=== PATIENT | female | born 1980 | race Caucasian/White ===

== ENCOUNTER 2017-02-19 23:41 | Emergency (ER) | payer SELFPAY ==
[~2017-02-19] VITALS: Ht 165.1 cm; Wt 81.0 kg
[~2017-02-19 23:41] MED LIST: Z.0.NO CURRENT MEDS
[2017-02-19 23:42] VITALS: BP 126/65; PULSE 86; RESP 15; TEMP 98.8; O2SAT 98
[2017-02-19] MEDS ORDERED: SODIUM CHLOR 0.9% 1000 ML INJ 1,000 ML IV ONE (23:59)
[2017-02-20] MEDS ORDERED: ONDANSETRON HCL 4 MG/2 ML VIAL IVP ONE
[2017-02-20] MEDS ORDERED: MORPHINE SULFATE 4 MG/ML INJ IV ONE
--- NOTE | 2017-02-20 00:15 | PD ---
HPI Chief Complaint: GI Complaint Time Seen by Provider: 23:59 Travel History International Travel<30 days: No Contact w/Intl Traveler<30days: No Traveled to known affect area: No History of Present Illness HPI C/O 1 WEEK H/O SUPRAPUBIC DISCOMFORT, WITH FREQUENCY/URGENCY/DYSURIA...OVER LAST 2 DAYS PAIN HAS NOW LOCATED TO LEFT FLANK AREA, SHARP, NONRAD, 02/13...NO FEVER/N/V/D/XAVIER/CP PFSH Past Medical History Anemia: Yes Heart Rhythm Problems: Yes (HX: SVT) Cardiovascular Problems: Yes (sinus ventricular tachycardia but not on medication for it) Diminished Hearing: No Gastrointestinal Disorders: No Genitourinary: Yes (RECURRANT UTI/PYELONEPHRITIS) Neurologic: No Respiratory: No Tetanus Vaccination: > 5 Years Influenza Vaccination: No ?: Not LMP: 02-12-17 : 5 Para: 4 Miscarriage: 1 Tubal Ligation: Yes Past Surgical History Section: Yes (4X) Genitourinary Surgery: Yes (URETHRAL WIDENING) Gynecologic Surgery: Yes () Other Surgery: Yes () Family History Family Myocardial Infarction: Yes (FATHER) Social History Alcohol Use: Yes (OCCASSIONALLY) Tobacco Use: Yes (< 1/2 PPD) Substance Use: No Allergies-Medications (Allergen,Severity, Reaction): Coded Allergies: No Known Allergies (Verified , 02/20/17) Reported Meds & Prescriptions Reported Meds & Active Scripts Active No Active Prescriptions or Reported Medications Review of Systems Except as stated in HPI: all other systems reviewed are Neg Genitourinary: Positive: Urgency, Frequency, Dysuria, Flank Pain Physical Exam Narrative GENERAL: SKIN: Warm and dry. HEAD: Atraumatic. Normocephalic. EYES: Pupils equal and round. No scleral icterus. No injection or drainage. ENT: No nasal bleeding or discharge. Mucous membranes pink and moist. NECK: Trachea midline. No JVD. CARDIOVASCULAR: Regular rate and rhythm. RESPIRATORY: No accessory muscle use. Clear to auscultation. Breath sounds equal bilaterally. GASTROINTESTINAL: Abdomen soft, non-tender, nondistended. MUSCULOSKELETAL: Extremities without clubbing, cyanosis, or edema. No obvious deformities. MILD LEFT CVAT NEUROLOGICAL: Awake and alert. No obvious cranial nerve deficits. Motor grossly within normal limits. Five out of 5 muscle strength in the arms and legs. Normal speech. PSYCHIATRIC: Appropriate mood and affect; insight and judgment normal. Data Data Last Documented VS Vital Signs Date Time Temp Pulse Resp B/P Pulse Ox O2 Delivery O2 Flow Rate FiO2 02/19/17 23:42 98.8 86 15 126/65 98 Room Air Orders Complete Blood Count With Diff (02/19/17 23:59) Comprehensive Metabolic Panel (02/19/17 23:59) Urinalysis - C+S If Indicated (02/19/17 23:59) Ed Urine Pregnancytest Poc (02/19/17 23:59) Ct Abd/Pel W/O Iv Contrast (02/19/17 23:59) Ecg Monitoring (02/19/17 23:59) Iv Access Insert/Monitor (02/19/17 23:59) Morphine Inj (Morphine Inj) (02/20/17 00:00) Ondansetron Inj (Zofran Inj) (02/20/17 00:00) Sodium Chlor 0.9% 1000 Ml Inj (Ns 1000 M (02/19/17 23:59) Urine Culture (02/20/17 00:05) Ceftriaxone Inj (Rocephin Inj) (02/20/17 01:30) Labs Laboratory Tests Test 02/20/17 00:05 White Blood Count 9.3 TH/MM3 Red Blood Count 4.17 MIL/MM3 Hemoglobin 10.4 GM/DL Hematocrit 32.0 % Mean Corpuscular Volume 76.8 FL Mean Corpuscular Hemoglobin 24.9 PG Mean Corpuscular Hemoglobin 32.4 % Concent Red Cell Distribution Width 19.7 % Platelet Count 495 TH/MM3 Mean Platelet Volume 6.9 FL Neutrophils (%) (Auto) 57.4 % Lymphocytes (%) (Auto) 31.6 % Monocytes (%) (Auto) 6.4 % Eosinophils (%) (Auto) 3.3 % Basophils (%) (Auto) 1.3 % Neutrophils # (Auto) 5.4 TH/MM3 Lymphocytes # (Auto) 2.9 TH/MM3 Monocytes # (Auto) 0.6 TH/MM3 Eosinophils # (Auto) 0.3 TH/MM3 Basophils # (Auto) 0.1 TH/MM3 CBC Comment DIFF FINAL Differential Comment Urine Color YELLOW Urine Turbidity HAZY Urine pH 5.5 Urine Specific [place] 1.023 Urine Protein NEG mg/dL Urine Glucose (UA) NEG mg/dL Urine Ketones NEG mg/dL Urine Occult Blood MOD Urine Nitrite POS Urine Bilirubin NEG Urine Urobilinogen LESS THAN 2.0 MG/DL Urine Leukocyte Esterase SMALL Urine RBC LESS THAN 1 /hpf Urine WBC 10 /hpf Urine Squamous Epithelial 1 /hpf Cells Urine Transitional Epithelial <1 /hpf Cells Urine Bacteria MANY /hpf Microscopic Urinalysis Comment CULTURE INDICATED Sodium Level 141 MEQ/L Potassium Level 3.3 MEQ/L Chloride Level 107 MEQ/L Carbon Dioxide Level 27.3 MEQ/L Anion Gap 7 MEQ/L Blood Urea Nitrogen 15 MG/DL Creatinine 1.07 MG/DL Estimat Glomerular Filtration 57 ML/MIN Rate Random Glucose 109 MG/DL Calcium Level 8.4 MG/DL Total Bilirubin 0.1 MG/DL Aspartate Amino Transf 15 U/L (AST/SGOT) Alanine Aminotransferase 25 U/L (ALT/SGPT) Alkaline Phosphatase 92 U/L Total Protein 7.4 GM/DL Albumin 3.7 GM/DL [facility] Medical Decision Making Medical Screen Exam Complete: Yes Emergency Medical Condition: Yes Medical Record Reviewed: Yes Differential Diagnosis UTI V PYELO V PERINEPHRIC ABSCESS V URETEROLITHIASIS Narrative Course UA C/W UTI, NO PYELO, NO KIDNEY ABSCESS AND NO KIDNEY STONES, PATIENT HAS NL RENAL FUNCTIONS AND NO LEUKOCYTOSIS. WILL GIVE IV ABX AND D/C ON PO ABX Diagnosis Primary Impression: ACUTE ASCENDING CYSTITIS Scripts Ondansetron Odt (Zofran Odt)4 Mg Tab4 Mg SL Q6HR PRN (Nausea/Vomiting) #20 TAB Prov:Xavi Denny MD 02/20/17 Hydrocodone-Acetaminophen (Lortab)7.5-325 Mg Tab1 Tab PO Q6H PRN (PAIN) #20 TAB Prov:Xavi Denny MD 02/20/17 Ciprofloxacin 500 Mg [id number] Mg PO BID #20 TAB Prov:Xavi Denny MD 02/20/17 Disposition: 01 DISCHARGE HOME Condition: Stable Xavi Denny MD Feb 20, 2017 00:15
[2017-02-20 00:30] LABS: AUTOMATED NEUTROPHIL # 5.4 TH/MM3 (1.8-7.7); BASOPHIL # 0.1 TH/MM3 (0-0.2); BASOPHIL % 1.3 % (0.0-2.0); EOSINOPHIL # 0.3 TH/MM3 (0-0.4); EOSINOPHIL % 3.3 % (0.0-4.0); HEMO FLAGS DIFF FINAL; LYMPH % 31.6 % (9.0-44.0); LYMPHOCYTE # 2.9 TH/MM3 (1.0-4.8); MEAN CELL VOLUME 76.8 FL (80.0-100.0); MEAN CORPUSCULAR HEMOGLOBIN 24.9 PG (27.0-34.0); MEAN CORPUSCULAR HGB CONC 32.4 % (32.0-36.0); MONO % 6.4 % (0.0-8.0); NEUT % 57.4 % (16.0-70.0); PLATELET COUNT 495 TH/MM3 (150-450); RED BLOOD COUNT 4.17 MIL/MM3 (4.00-5.30); RED CELL DISTRIBUTION WIDTH 19.7 % (11.6-17.2); WHITE BLOOD COUNT 9.3 TH/MM3 (4.0-11.0)
--- NOTE | 2017-02-20 00:38 | RADRPT ---
EXAM DATE/TIME: 02/20/2017 00:16 [place] COMPARISON: No previous studies available for comparison. INDICATIONS : Left flank pain. ORAL CONTRAST: No oral contrast ingested. RADIATION DOSE: 8.53 CTDIvol (mGy) MEDICAL HISTORY : Pyelonephritis. SURGICAL HISTORY : section. Tubal ligation. ENCOUNTER: Initial ACUITY: 1 week PAIN SCALE: 5/10 LOCATION: Left flank TECHNIQUE: Renal colic protocol. Volumetric scanning of the abdomen and pelvis was performed. Using automated exposure control and adjustment of the mA and/or kV according to patient size, radiation dose was kep t as low as reasonably achievable to obtain optimal diagnostic quality images. DICOM format image da ta is available electronically for review and comparison. FINDINGS: Right side: Atrophic kidney with long axis measuring 7.3 cm. There are scattered calcifications in the cortex of the atrophic kidney. No calcifications seen in the collecting system and no evidence of hydronephro sis. The right ureter is normal in dimension without calcification. Left side: Normal size and normal cortical thickness. No calcified stones or hydronephrosis. Left ureter is no rmal in diameter. Bladder: Nondistended. No calcifications within the lumen. Other: Anteverted uterus. No dilated loops of small or large bowel. No calcifications within the contracte d gallbladder. Osseous structures are grossly intact. CONCLUSION: 1. No calcified stones or hydronephrosis left kidney. 2. Atrophic right kidney with standard cortical calcifications characteristic of chronic pyelonephrit is. Emigdio Dinh MD on February 20, 2017 at 0:33 Board Certified Radiologist. This report was verified electronically.
[2017-02-20 00:51] LABS: ANION GAP 7 MEQ/L (5-15); AST (GOT) 15 U/L (15-37); BICARBONATE 27.3 MEQ/L (21.0-32.0); BLOOD UREA NITROGEN 15 MG/DL (7-18); CHLORIDE 107 MEQ/L (98-107); GLOMERULAR FILTRATION RATE 57 ML/MIN (>89); POTASSIUM 3.3 MEQ/L (3.5-5.1); SODIUM (NA) 141 MEQ/L (136-145)
[2017-02-20 00:52] LABS: ALT (GPT) 25 U/L (10-53)
[2017-02-20 00:54] LABS: ALKALINE PHOSPHATASE 92 U/L (45-117); TOTAL BILIRUBIN ADULT 0.1 MG/DL (0.2-1.0)
[2017-02-20 01:10] LABS: BACTERIA, URINE MANY /hpf; BLOOD, URINE MOD (NEG); GLUCOSE,URINE NEG (NEG); KETONE, URINE NEG (NEG); PH, URINE 5.5 (5.0-8.5); SQUAMOUS EPITHELIAL CELL URINE 1 /hpf (0-5); TRANSITIONAL EPI CELLS, URINE <1 /hpf; URINE COLOR YELLOW (YELLW/STRAW)
[2017-02-20 01:11] LABS: NITRITE,URINE POS (NEG)
[2017-02-20 01:12] LABS: COMMENT (UR) CULTURE INDICATED; CULTURE IF INDICATED CULTURE INDICATED
[2017-02-20] MEDS ORDERED: ZOFR4TAB3 SL (01:23)
[2017-02-20] MEDS ORDERED: HYDR-3534 PO (01:23)
[2017-02-20] MEDS ORDERED: CIPR500T2 PO (01:23)
[2017-02-20] MEDS ORDERED: cefTRIAXone INJ 2,000 MG in SODIUM CHLORIDE 0.9% INJ 100 ML IV ONE (01:30)
[2017-02-20 01:58] VITALS: BP 119/65; PULSE 78; RESP 18; O2SAT 99
== END 2017-02-20 02:15 | disposition home or self-care (01) ==
LOC: NEPC 23:41
DX: N30.90 Cystitis, unspecified without hematuria (principal)
CPT/HCPCS: 74176; 80053; 81001; 84703; 85025; 87086; 96361; 96365; 96375; 99285; J0696; J2270; J2405; J7030